=== PATIENT | male | born 1985 | race Caucasian/White ===

== ENCOUNTER 2017-11-05 07:53 | Emergency (ER) | payer SELFPAY ==
--- NOTE | 2017-11-05 08:13 | ER Document Report ---
ED Allergic Reaction - General Mode of Arrival: Ambulatory Information source: Patient TRAVEL OUTSIDE OF THE [place] IN LAST 30 DAYS: No - General Chief Complaint: Allergic Reaction Stated Complaint: POSSIBLE ALLERGIC REACTION Time Seen by Provider: 11/05/17 08:02 Notes: Patient is a 32 year old male that presents to the emergency department today with complaints of an allergic reaction to bactrim. Patient self administered two dosages of this medication, once two days ago and once yesterday. Patient had a bactrim prescription from previous right hand infection and debridement. Patient complains of mouth sores, lip swelling, facial swelling, and skin sloughing in the mouth and groin area. Patient mentions he has had symptoms like this previously when taking doxycycline. (FÉLIX MARK) - Related Data Allergies/Adverse Reactions: sulfamethoxazole [From Bactrim] Allergy (Verified 11/05/17 08:55) tramadol Allergy (Verified 11/05/17 08:55) trimethoprim [From Bactrim] Allergy (Verified 11/05/17 08:55) Past Medical History - General Information source: Patient - Social History Smoking Status: Never Smoker Cigarette use (# per day): No Frequency of alcohol use: None Drug Abuse: None Lives with: Family Family History: Reviewed & Not Pertinent Renal/ Medical History: Reports: Hx Kidney Stones Past Surgical History: Reports: Hx Orthopedic Surgery - right hand infection Review of Systems - Review of Systems Constitutional: No symptoms reported EENT: Mouth pain, Mouth swelling Cardiovascular: No symptoms reported Respiratory: No symptoms reported Gastrointestinal: No symptoms reported Genitourinary: No symptoms reported Male Genitourinary: No symptoms reported Musculoskeletal: No symptoms reported Skin: No symptoms reported Hematologic/Lymphatic: No symptoms reported Neurological/Psychological: No symptoms reported -: Yes All other systems reviewed and negative Physical Exam - Vital signs Vitals: Temp Pulse Resp BP Pulse Ox 98.4 F 66 16 123/75 100 11/05/17 07:56 11/05/17 07:56 11/05/17 07:56 11/05/17 07:56 11/05/17 07:56 - Notes Notes: Physical Exam: General: Alert, appears mildly uncomfortable. HEENT: Normocephalic. Atraumatic. PERRL. Extraocular movements intact. Oropharynx clear. Buccal mucsoa of cheeks and lips is white in color and sloughing, lips are dry and cracked. Neck: Supple. Non-tender. Respiratory: No respiratory distress. Clear and equal breath sounds bilaterally. Cardiovascular: Regular rate and rhythm. Abdominal: Normal Inspection. Non-tender. No distension. Normal Bowel Sounds. Back: Non-tender. No deformity or step off. Extremities: Moves all four extremities. Upper extremities: See skin exam Lower extremities: Normal inspection. No edema. Normal ROM. Neurological: Normal cognition. AAOx4. Normal speech. Psychological: Normal affect. Normal Mood. Skin: Right hand has dusky reddish purple area with water-filled blisters that are mildly tender. Left hand 5th digit dorsal aspect has area that is erythematous without fluctuance, swelling, or signs of abscess formation. ( FÉLIX MARK) - Vital Signs Vital signs: Temp Pulse Resp BP Pulse Ox 98.4 F 66 16 123/75 100 11/05/17 07:56 11/05/17 07:56 11/05/17 07:56 11/05/17 07:56 11/05/17 07:56 Discharge - Discharge Clinical Impression: Mclaughlin-Rashaad syndrome, Cellulitis of hand Disposition: HOME, SELF-CARE Additional Instructions: Take medications as prescribed. Start the prednisone and the doxycycline tonight. Avoid foods and liquids that worsen the irritation in your mouth. Stay well hydrated drinking plenty of water. Get plenty of rest. Follow-up with your doctor tomorrow for recheck if not improving. RETURN TO THE EMERGENCY ROOM IF ANY NEW OR WORSENING SYMPTOMS. Prescriptions: Doxycycline Hyclate 100 mg PO BID #14 tablet Hydrocodone/Acetaminophen [Hydrocodon-Acetaminophen 5-325] 1 each PO Q4 PRN #10 tablet PRN Reason: For Pain Prednisone [Deltasone 10 mg Tablet] 10 mg PO ASDIR PRN #21 tablet PRN Reason: Scribe Attestation: 11/05/17 08:56 I personally performed the services described in the documentation, reviewed and edited the documentation which was dictated to the scribe in my presence, and it accurately records my words and actions. (HOLGER PRADO) Scribe Documentation - Scribe Written by Tess:: Tess Vincent, 11/05/2017 [id number] acting as scribe for :: Kandis
[2017-11-05] MEDS ORDERED: DOXYCYCLINE HYCLATE 100 MG TABLET PO ONE (08:15)
[2017-11-05] MEDS ORDERED: OXYCODONE-ACETAMINOPHEN 5-325 MG TABLET PO ONE (08:15)
[2017-11-05] MEDS ORDERED: PREDNISONE 20 MG TABLET PO ONE (08:15)
[2017-11-05 09:39] VITALS: BP 126/76
== END 2017-11-05 09:38 | disposition home or self-care (01) ==
LOC: ER 07:53
DX: L51.1 Stevens-Johnson syndrome (principal); T37.0X5A Adverse effect of sulfonamides, initial encounter; L03.114 Cellulitis of left upper limb; K13.79 Other lesions of oral mucosa; R22.0 Localized swelling, mass and lump, head; L98.8 Other specified disorders of the skin and subcutaneous tissue
CPT/HCPCS: 99283; J7512